=== PATIENT | male | born 1995 | race Caucasian/White ===

== ENCOUNTER → 2016-04-28 | Outpatient (CLI) | payer OTHER ==
--- NOTE | 2016-04-28 18:30 | Diagnostic Imaging Report ---
Right breast ultrasound. INDICATION: Right breast mass in the retroareolar region. FINDINGS: There is a 1.9 x 0.7 x 1.7 cm hypodense lesion seen at the retroareolar region with minimal peripheral internal vascularity suggestive of gynecomastia. No other lesion is seen. IMPRESSION: A 1.9 cm retroareolar mass is likely secondary to gynecomastia. Clinical follow-up is recommended. If this lesion persists or enlarges, then a follow-up study in three months would be recommended to reevaluate. ACR BI-RADS Category 2: Benign findings. Dictated by: Dictated on workstation # [id number]
== END ==
LOC: RAD 13:59
PROVIDERS: ATTEND Nurse Practitioner Primary Care
DX: N63 Unspecified lump in breast (principal)
CPT/HCPCS: 76641